=== PATIENT | female | born 1995 | race African-American/Black ===

== ENCOUNTER 2022-01-01 16:47 | Emergency (ER) | payer OTHER ==
[~2022-01-01] VITALS: Ht 167.6 cm; Wt 109.1 kg
[2022-01-01 17:26] LABS: BASOPHILS % (AUTO) 0.9 % (0.0-2.0); EOSINOPHILS % (AUTO) 0.4 % (1.0-6.0); HEMATOCRIT 38.8 % (36-46); HEMOGLOBIN 12.9 g/dL (12.0-16.0); LYMPHOCYTES # (AUTO) 2.2 K/uL (1.0-4.8); LYMPHOCYTES % (AUTO) 32.8 % (22.0-44.0); MEAN CORPUSCULAR HEMOGLOBIN 27.5 pg (26.0-34.0); MEAN CORPUSCULAR HGB CONC 33.2 G/dL (31.0-37.0); MEAN CORPUSCULAR VOLUME 83 fL (80-100); MONOCYTES # (AUTO) 0.5 K/uL (0.1-1.0); MONOCYTES % (AUTO) 7.4 % (2.0-9.0); NEUTROPHILS # (AUTO) 3.9 K/uL (1.8-7.7); NEUTROPHILS % (AUTO) 58.5 % (40.0-70.0); PLATELET COUNT (AUTO) 372 K/uL (150-450); RED BLOOD CELL COUNT(AUTO) 4.67 MIL/uL (4.00-5.20); RED CELL DISTRIBUTION WIDTH 13.4 % (11.5-14.5)
[2022-01-01 17:36] LABS: ANION GAP 3 mmol/L (8-16); CALCIUM, TOTAL 9.2 mg/dL (8.8-10.5); CARBON DIOXIDE 30 mmol/L (22-29); CHLORIDE 103 mmol/L (98-107); CREATININE 0.91 mg/dL (0.60-1.30); GLOMERULAR FILTR. RATE CALC > 60 mL/min (>60); GLUCOSE,RANDOM 112 mg/dL (70-110); POTASSIUM 3.5 mmol/L (3.5-5.1); SODIUM SERUM 136 mmol/L (136-145); UREA NITROGEN, BLOOD 11 mg/dL (7-18)
[2022-01-01] MEDS ORDERED: LIDOCAINE 5% TRANSDERMAL PATCH TD ONE (18:00)
[2022-01-01] MEDS ORDERED: CYCLOBENZAPRINE HCL 10 MG TABLET PO ONE (18:00)
[2022-01-01] MEDS ORDERED: KETOROLAC TROMETHAMINE 30 MG/ML VIAL IM ONE (18:00)
[2022-01-01] MEDS ORDERED: IBUP-2070 PO (18:55)
[2022-01-01] MEDS ORDERED: CYCL-448 PO (18:55)
[2022-01-01 19:01] VITALS: BP 140/80
== END 2022-01-01 19:05 | disposition home or self-care (01) ==
LOC: EMS 16:55
DX: M54.16 Radiculopathy, lumbar region (principal); R07.89 Other chest pain; I10 Essential (primary) hypertension
CPT/HCPCS: 99285; 71045; 80048; 84484; 85025; 36415; 93005; 96372; J1885

== ENCOUNTER 2022-12-20 12:02 | Emergency (ER) | payer OTHER ==
[~2022-12-20] VITALS: Ht 167.6 cm; Wt 104.5 kg
[~2022-12-20 12:02] MED LIST: CYCL-448 PO; IBUP-1492 PO
[2022-12-20 12:14] VITALS: TEMP 98
[2022-12-20] MEDS ORDERED: KETOROLAC TROMETHAMINE 30 MG/ML VIAL IM ONE (14:15)
[2022-12-20] MEDS ORDERED: DIAZEPAM 5 MG TABLET PO ONE (14:15)
[2022-12-20 17:57] VITALS: BP 143/93; PULSE 105; RESP 18
[2022-12-20] MEDS ORDERED: DIAZ-328 PO (18:22)
[2022-12-20] MEDS ORDERED: IBUP-1492 PO (18:22)
[2022-12-20] MEDS ORDERED: ACET-3385 PO (18:22)
== END 2022-12-20 18:33 | disposition home or self-care (01) ==
LOC: EMS 12:03
DX: M48.02 Spinal stenosis, cervical region (principal); I10 Essential (primary) hypertension
CPT/HCPCS: 99285; 72141; 72125; 96372; J1885

== ENCOUNTER 2023-09-11 06:39 | Emergency (ER) | payer SELFPAY ==
[~2023-09-11] VITALS: Ht 167.6 cm; Wt 109.1 kg
[~2023-09-11 06:39] MED LIST changes: +ACET-3385 PO; +DIAZ-328 PO
[2023-09-11 07:16] VITALS: BP 163/99; PULSE 74; RESP 18; TEMP 98.5
[2023-09-11] MEDS: METOCLOPRAMIDE HCL 5 MG/ML 2 ML VIAL IVP ONE (07:25)
[2023-09-11] MEDS: SODIUM CHLORIDE 0.9% 1,000 ML IV ONE (07:26)
[2023-09-11 07:47] LABS: BASOPHILS % (AUTO) 0.2 % (0.0-2.0); EOSINOPHILS % (AUTO) 1.5 % (1.0-6.0); HEMATOCRIT 40.3 % (36-46); HEMOGLOBIN 13.5 g/dL (12.0-16.0); LYMPHOCYTES # (AUTO) 1.4 K/uL (1.0-4.8); LYMPHOCYTES % (AUTO) 21.7 % (22.0-44.0); MEAN CORPUSCULAR HEMOGLOBIN 27.9 pg (26.0-34.0); MEAN CORPUSCULAR HGB CONC 33.4 G/dL (31.0-37.0); MEAN CORPUSCULAR VOLUME 84 fL (80-100); MONOCYTES # (AUTO) 0.5 K/uL (0.1-1.0); MONOCYTES % (AUTO) 7.2 % (2.0-9.0); NEUTROPHILS # (AUTO) 4.4 K/uL (1.8-7.7); NEUTROPHILS % (AUTO) 69.4 % (40.0-70.0); PLATELET COUNT (AUTO) 372 K/uL (150-450); RED BLOOD CELL COUNT(AUTO) 4.82 MIL/uL (4.00-5.20); RED CELL DISTRIBUTION WIDTH 13.4 % (11.5-14.5); WHITE BLOOD COUNT (AUTO) 6.3 K/uL (4.5-11.0)
[2023-09-11 07:58] LABS: ANION GAP 6 mmol/L (8-16); CALCIUM, TOTAL 9.5 mg/dL (8.8-10.5); CARBON DIOXIDE 30 mmol/L (22-29); CHLORIDE 104 mmol/L (98-107); CREATININE 0.84 mg/dL (0.60-1.30); GLOMERULAR FILTR. RATE CALC > 60 mL/min (>60); GLUCOSE,RANDOM 96 mg/dL (70-110); POTASSIUM 4.2 mmol/L (3.5-5.1); SODIUM SERUM 140 mmol/L (136-145); UREA NITROGEN, BLOOD 11 mg/dL (7-18)
[2023-09-11 08:02] LABS: APPEARANCE,URINE CLEAR (CLEAR); BILIRUBIN,URINE NEGATIVE (NEGATIVE); COLOR,URINE COLORLESS (YELLOW); GLUCOSE, URINE (UA) NEGATIVE (NEGATIVE); KETONES,URINE NEGATIVE (NEGATIVE); LEUKOCYTE ESTERASE ,URINE NEGATIVE (NEGATIVE); NITRATE,URINE NEGATIVE (NEGATIVE); OCCULT BLOOD,URINE NEGATIVE (NEGATIVE); PH,URINE 7.5 (5.0-8.0); PROTEIN,URINE NEGATIVE (NEGATIVE); UROBILINOGEN,URINE <=1.0 mg/dL (<=1.0)
[2023-09-11 08:05] LABS: ALANINE AMINOTRANSFERASE 18 U/L (12-78); ALBUMIN 3.3 g/dL (3.4-5.0); ALKALINE PHOSPHATASE 96 U/L (46-116); ASPARTATE AMINOTRANSFERASE 13 U/L (15-37); BILIRUBIN,TOTAL 0.4 mg/dL (0.1-1.0); HCG,QUANTITATIVE < 1 mIU/mL (0-6); LIPASE 28 U/L (16-77); TOTAL PROTEIN, SERUM 7.7 g/dL (6.4-8.2)
== END 2023-09-11 10:59 | disposition home or self-care (01) ==
LOC: EMS 06:40
DX: K52.9 Noninfective gastroenteritis and colitis, unspecified (principal); I10 Essential (primary) hypertension
CPT/HCPCS: 99283; 96374; 96361; 80053; 81003; 83690; 84702; 85025; 36415; J2765; J7030

== ENCOUNTER 2024-03-05 17:12 | Emergency (ER) | payer BC ==
[~2024-03-05] VITALS: Ht 167.6 cm; Wt 110.0 kg
[2024-03-05 17:14] VITALS: TEMP 98.2
[2024-03-05 18:24] LABS: COVID AG,FIA SOURCE NASAL SWAB
[2024-03-05 18:47] LABS: INFLUENZA TYPE A NEGATIVE FOR TYPE A (NEGATIVE); INFLUENZA TYPE B NEGATIVE FOR TYPE B (NEGATIVE); SARS-COV2 (COVID) ANTIGEN,FIA Negative (Negative)
[2024-03-05] MEDS ORDERED: ALBU18HF12 IH (19:19)
[2024-03-05] MEDS ORDERED: AZIT250T9 PO (19:19)
[2024-03-05 19:23] VITALS: BP 142/86; PULSE 69; RESP 18; O2SAT 98
== END 2024-03-05 19:38 | disposition home or self-care (01) ==
LOC: EMS 17:12
DX: J98.4 Other disorders of lung (principal); I10 Essential (primary) hypertension; Z91.040 Latex allergy status; Z20.822 Contact with and (suspected) exposure to COVID-19
CPT/HCPCS: 71045; 87804; 99284

== ENCOUNTER 2024-03-13 21:55 | Emergency (ER) | payer BC ==
[~2024-03-13] VITALS: Ht 167.6 cm; Wt 109.1 kg
[~2024-03-13 21:55] MED LIST changes: +ALBU18HF12 IH
[2024-03-13 22:12] VITALS: TEMP 98.1
[2024-03-13] MEDS ORDERED: BENZ-227 PO (22:42)
[2024-03-13] MEDS: BENZONATATE 100 MG CAPSULE PO ONE (22:50)
[2024-03-13 23:02] VITALS: BP 154/85; PULSE 91; RESP 18; O2SAT 100
== END 2024-03-13 23:09 | disposition home or self-care (01) ==
LOC: EMS 21:55
DX: R05.9 Cough, unspecified (principal); I10 Essential (primary) hypertension
CPT/HCPCS: 99283